=== PATIENT | female | born 1940 | race Caucasian/White ===

== ENCOUNTER 2018-03-04 08:56 | Day surgery (SDC) | payer MEDICARE, OTHER ==
[~2018-03-04] VITALS: Ht 165.1 cm; Wt 70.0 kg
[~2018-03-04 08:56] MED LIST: ASPI-496 PO; DARI15TA3 PO; LEVO100T5 PO; OMEP40CA6 PO
[2018-03-04 10:20] VITALS: BP 143/66
[2018-03-04] MEDS ORDERED: CALC0.254 PO (10:34)
[2018-03-04 10:51] LABS: BASOPHILS # (AUTO) 0.05 x10^3/uL (0-0.1); BASOPHILS % (AUTO) 1 % (0-1); EOSINOPHILS % (AUTO) 3 % (1-7); LYMPHOCYTES # (AUTO) 1.65 x10^3/uL (1-3.4); LYMPHOCYTES % (AUTO) 25 % (22-44); MD NO; MEAN CORPUSCULAR HEMOGLOBIN 31.5 pg (27.0-34.8); MEAN CORPUSCULAR HGB CONC 33.6 g/dL (32.4-35.8); MEAN CORPUSCULAR VOLUME 93.7 fL (80-100); MONOCYTES # (AUTO) 0.35 x10^3/uL (0.2-0.8); MONOCYTES % (AUTO) 5 % (2-9); NEUTROPHILS # (AUTO) 4.49 x10^3/uL (1.8-6.8); NEUTROPHILS % (AUTO) 67 % (42-75); PLATELET COUNT 213 x10^3/uL (130-400); RED BLOOD COUNT 4.25 x10^6/uL (3.82-5.3); RED CELL DISTRIBUTION WIDTH 13.3 % (9.6-15.2)
[2018-03-04 10:54] LABS: ANION GAP 8 mmol/L (5-15); CALCIUM 8.8 mg/dL (8.5-10.1); CHLORIDE 107 mmol/L (98-107); CREATININE 0.91 mg/dL (0.55-1.02)
[2018-03-04] MEDS ORDERED: FENTANYL PF 100 MCG/2ML ONE (11:45)
[2018-03-04] MEDS ORDERED: MIDAZOLAM 1 MG/ML, 5ML ONE (11:45)
[2018-03-04] MEDS ORDERED: LIDOCAINE-MPF 2%, 2ML ONE (11:46)
[2018-03-04] MEDS ORDERED: VERAPAMIL 2.5 MG/ML, 2ML ONE (11:46)
[2018-03-04] MEDS ORDERED: BIVALIRUDIN 250 MG ONE (11:46)
[2018-03-04] MEDS ORDERED: HEPARIN 1,000 UNITS/ML, 10ML ONE (11:46)
[2018-03-04] MEDS ORDERED: TICAGRELOR 90 MG TABLET ONE (11:46)
[2018-03-04] MEDS ORDERED: SODIUM CHLORIDE 0.9% 1,000 ML IV SCH (12:19)
== END 2018-03-04 14:20 | disposition home or self-care (01) ==
LOC: CACL 08:56
PROVIDERS: ATTEND Internal Medicine Cardiovascular Disease
DX: R07.9 Chest pain, unspecified (principal); K21.9 Gastro-esophageal reflux disease without esophagitis; E03.9 Hypothyroidism, unspecified; Z72.89 Other problems related to lifestyle; Z79.82 Long term (current) use of aspirin; Z88.8 Allergy status to other drugs, medicaments and biological substances
CPT/HCPCS: 36415; 80048; 85025; 93458; 99156; C1769; C1894; J1644; J2250; J3010; J3490; Q9967; J0583

== ENCOUNTER 2018-10-03 10:01 | Outpatient (CLI) | payer MEDICARE, OTHER ==
[~2018-10-03 10:01] MED LIST changes: +CALC0.254 PO
== END 2018-10-03 23:59 | disposition home or self-care (01) ==
LOC: RAD 10:01
PROVIDERS: ATTEND Nurse Practitioner Family
DX: R68.84 Jaw pain (principal)
CPT/HCPCS: 70100

== ENCOUNTER 2019-03-13 13:27 | Outpatient (CLI) | payer MEDICARE, OTHER | END 2019-03-13 23:59 | disposition home or self-care (01) | LOC: STAR 13:27 | PROVIDERS: ATTEND Orthopaedic Surgery | DX: Z01.818 Encounter for other preprocedural examination (principal); M18.11 Unilateral primary osteoarthritis of first carpometacarpal joint, right hand; M25.551 Pain in right hip; M17.0 Bilateral primary osteoarthritis of knee; Z79.82 Long term (current) use of aspirin; Z79.899 Other long term (current) drug therapy | CPT/HCPCS: 36415; 80053; 83036; 85025; 85610; 85730; 87081; 93005 ==

== ENCOUNTER 2019-03-17 10:29 | Inpatient (IN) | payer MEDICARE, OTHER ==
[~2019-03-17] VITALS: Ht 165.1 cm; Wt 72.0 kg
[2019-03-18 14:31] VITALS: BP 142/74
== END 2019-03-18 15:19 | disposition home or self-care (01) | DRG 470 ==
LOC: ORIP 10:29 → EDSTATUS 14:00 → 4NOR 15:49 → DCLOUNGE 03-18 15:00
PROVIDERS: ADMIT Orthopaedic Surgery; ATTEND Orthopaedic Surgery
PROC: 0SR906A Replacement of Right Hip Joint with Oxidized Zirconium on Polyethylene Synthetic Substitute, Uncemented, Open Approach (ICD-10-PCS; principal; 2019-03-17)
DX: M16.11 Unilateral primary osteoarthritis, right hip (principal); K21.9 Gastro-esophageal reflux disease without esophagitis; Z90.710 Acquired absence of both cervix and uterus; M81.0 Age-related osteoporosis without current pathological fracture; Z82.49 Family history of ischemic heart disease and other diseases of the circulatory system
CPT/HCPCS: 36415; 72170; 76000; 85014; 85018; C1713; G0378; J0171; J0690; J1100; J1170; J1885; J2405; J2704; J2710; J2795; J3010; J3370; J3480; C1776; J0330; J7120

== ENCOUNTER 2019-04-15 08:43 | Inpatient (IN) | payer MEDICARE, OTHER ==
[~2019-04-15] VITALS: Ht 165.1 cm; Wt 75.7 kg
[~2019-04-15 08:43] MED LIST changes: +IMIP10TA2 PO; +MELO7.5T31 PO; +MELO7.5T5 PO; +NAPR1TAB25 PO; +NAPR220C2 PO; +OXYC5CAP2 PO; +TRAM50TA2 PO
[2019-04-15] MEDS ORDERED: SODIUM CHLORIDE FLUSH 10ML SYR IVF ONE (09:30)
[2019-04-15] MEDS ORDERED: ONDANSETRON 2MG/ML, 2ML IVPush ONE (09:30)
[2019-04-15] MEDS ORDERED: ONDANSETRON 2MG/ML, 2ML ONE (09:46)
[2019-04-15] MEDS ORDERED: MORPHINE SULFATE 4 MG/ML, 1ML ONE ×2 (09:47→11:17)
[2019-04-15] MEDS: MORPHINE SULFATE 4 MG/ML, 1ML IVPush PRN ×2 (09:56→11:22)
--- NOTE | 2019-04-15 09:59 | NUR ---
PIV INITITATED, PT MEDICATED PER MAR, NO OTHER NEEDS AT THIS TIME
--- NOTE | 2019-04-15 10:46 | NUR ---
PT REPORTS SIG PAIN RELIEF, PAIN DOWN TO 3/10 FROM 02/15. ER PROVIDER IN TO UPDATE PT, PT TO GO TO CT
--- NOTE | 2019-04-15 11:40 | NUR ---
PT MEDICATED BY REMA TOLLIVER FOR SECOND DOSE OF MORPHINE, PT STATES SHE IS COMFORTABLE AT THIS TIME, PAIN 4/10
[2019-04-15 12:29] LABS: BASOPHILS # (AUTO) 0.02 x10^3/uL (0-0.1); BASOPHILS % (AUTO) 0 % (0-1); EOSINOPHILS # (AUTO) 0.03 x10^3/uL (0-0.4); EOSINOPHILS % (AUTO) 0 % (1-7); LYMPHOCYTES # (AUTO) 1.62 x10^3/uL (1-3.4); LYMPHOCYTES % (AUTO) 15 % (22-44); MD NO; MEAN CORPUSCULAR HEMOGLOBIN 31.4 pg (27.0-34.8); MEAN CORPUSCULAR HGB CONC 33.1 g/dL (32.4-35.8); MEAN CORPUSCULAR VOLUME 94.9 fL (80-100); MEAN PLATELET VOLUME 9.3 fL (7.4-10.4); MONOCYTES # (AUTO) 0.36 x10^3/uL (0.2-0.8); MONOCYTES % (AUTO) 3 % (2-9); NEUTROPHILS # (AUTO) 8.98 x10^3/uL (1.8-6.8); NEUTROPHILS % (AUTO) 82 % (42-75); PLATELET COUNT 225 x10^3/uL (130-400); RED BLOOD COUNT 3.51 x10^6/uL (3.82-5.3); RED CELL DISTRIBUTION WIDTH 14.3 % (9.6-15.2)
[2019-04-15] MEDS ORDERED: ONDANSETRON 2MG/ML, 2ML IVPush PRN (12:30)
[2019-04-15] MEDS ORDERED: ENALAPRILAT 1.25 MG/ML, 2ML IVPush PRN (12:30)
[2019-04-15] MEDS ORDERED: DOCUSATE 100 MG CAPSULE PO PRN (12:30)
[2019-04-15] MEDS ORDERED: ONDANSETRON ODT 4 MG PO PRN (12:30)
[2019-04-15] MEDS ORDERED: morphine SULFATE 10 MG/ML, 1ML IVPush PRN (12:30)
[2019-04-15] MEDS ORDERED: GUAIFENESIN/DM 200-20MG, 10ML UDC PO PRN (12:30)
[2019-04-15] MEDS ORDERED: ZOLPIDEM 5MG TABLET PO PRN (12:30)
[2019-04-15] MEDS ORDERED: ACETAMINOPHEN 325 MG TABLET PO PRN (12:30)
[2019-04-15] MEDS ORDERED: CYCLOBENZAPRINE 10 MG TABLET PO PRN (12:30)
[2019-04-15] MEDS ORDERED: LACTATED RINGERS 1,000 ML IV ONE (12:30)
--- NOTE | 2019-04-15 12:32 | NUR ---
BREAK RN:PT NEEDING TO USE RESTROOM AT THIS TIME DUE TO INJURY AND RECENT FALL THE OPTIONS OF BED STEEN OR PURE WICK CATHETER GIVEN. AT THIS TIME PT CHOOSES PURE WICK. PURE WICK IS PLACED AND PT EDUCATED ON USE.
[2019-04-15 12:35] LABS: INTERNATIONAL NORMALIZED RATIO 1.01 (0.93-1.1); PROTHROMBIN TIME 10.6 Seconds (9.6-11.5)
[2019-04-15 12:36] LABS: ALBUMIN 3.5 g/dL (3.4-5.0); ANION GAP 4 mmol/L (5-15); CALCIUM 8.5 mg/dL (8.5-10.1); CHLORIDE 110 mmol/L (98-107); CREATININE 0.92 mg/dL (0.55-1.02)
--- NOTE | 2019-04-15 13:35 | NUR ---
REPORT CALLED TO RECIEVING RN
[2019-04-15 13:57] VITALS: BP 164/80
[2019-04-15 19:59] VITALS: BP 169/69
[2019-04-15] MEDS: TEMAZEPAM 15 MG CAPSULE PO PRN (21:41)
[2019-04-16 00:53] VITALS: BP 126/71
[2019-04-16 05:37] LABS: BASOPHILS # (AUTO) 0.02 x10^3/uL (0-0.1); BASOPHILS % (AUTO) 0 % (0-1); EOSINOPHILS # (AUTO) 0.12 x10^3/uL (0-0.4); EOSINOPHILS % (AUTO) 2 % (1-7); LYMPHOCYTES % (AUTO) 24 % (22-44); MD NO; MEAN CORPUSCULAR HEMOGLOBIN 31.4 pg (27.0-34.8); MEAN CORPUSCULAR HGB CONC 32.8 g/dL (32.4-35.8); MEAN CORPUSCULAR VOLUME 95.7 fL (80-100); MEAN PLATELET VOLUME 9.8 fL (7.4-10.4); MONOCYTES # (AUTO) 0.43 x10^3/uL (0.2-0.8); MONOCYTES % (AUTO) 6 % (2-9); NEUTROPHILS # (AUTO) 5.13 x10^3/uL (1.8-6.8); NEUTROPHILS % (AUTO) 68 % (42-75); PLATELET COUNT 189 x10^3/uL (130-400); RED BLOOD COUNT 3.39 x10^6/uL (3.82-5.3); RED CELL DISTRIBUTION WIDTH 14.4 % (9.6-15.2)
[2019-04-16 05:52] LABS: ANION GAP 5 mmol/L (5-15); CALCIUM 8.2 mg/dL (8.5-10.1); CHLORIDE 109 mmol/L (98-107)
[2019-04-16 05:54] LABS: CREATININE 0.86 mg/dL (0.55-1.02)
[2019-04-16] MEDS: LEVOTHYROXINE 100 MCG TABLET PO SCH (06:00)
[2019-04-16] MEDS ORDERED: MORPHINE SULFATE 4 MG/ML, 1ML IVPush PRN (07:30)
[2019-04-16] MEDS ORDERED: MEPERIDINE/PF 25MG/ML,1ML IVPush PRN (07:30)
[2019-04-16] MEDS ORDERED: PROMETHAZINE 25 MG/ML, 1ML IV PRN (07:30)
[2019-04-16] MEDS ORDERED: LABETALOL 5MG/ML, 20ML IV PRN (07:30)
[2019-04-16] MEDS ORDERED: hydrALAzine 20 MG/ML, 1ML IV PRN (07:30)
[2019-04-16] MEDS ORDERED: OXYcodone 5 MG/5 ML ORAL.SOL UDC PO PRN (07:30)
[2019-04-16] MEDS ORDERED: ACETAMINOPHEN 325 MG TABLET PO PRN (07:30)
[2019-04-16] MEDS ORDERED: GLYCOPYRROLATE 0.2MG/1ML, 5ML ONE (07:37)
[2019-04-16] MEDS ORDERED: ROCURONIUM 10 MG/ML,10ML ONE (07:37)
[2019-04-16] MEDS ORDERED: PROPOFOL 10 MG/ML, 20ML ONE (07:37)
[2019-04-16] MEDS ORDERED: CEFAZOLIN 1,000 MG ONE (07:37)
[2019-04-16] MEDS ORDERED: DEXAMETHASONE 4 MG/ML, 1ML ONE (07:37)
[2019-04-16] MEDS ORDERED: NEOSTIGMINE 1 MG/ML, 10ML ONE (07:37)
[2019-04-16] MEDS ORDERED: ONDANSETRON 2MG/ML, 2ML ONE (07:37)
[2019-04-16] MEDS: ACETAMINOPHEN 325 MG TABLET PO SCH ×3 (09:00→21:10)
[2019-04-16] MEDS: ENOXAPARIN 40 MG/0.4 ML SQ SCH (09:00)
[2019-04-16] MEDS ORDERED: ASPIRIN 81 MG TABLET EC PO SCH (09:00)
[2019-04-16] MEDS: IMIPRAMINE 10 MG TABLET PO SCH (09:00)
[2019-04-16] MEDS: CALCIUM/VITAMIN D3 250-125 TABLET PO SCH ×2 (09:00→21:10)
[2019-04-16] MEDS: FENTANYL PF 100 MCG/2ML IV PRN ×2 (09:40→10:05)
[2019-04-16] MEDS: HYDROmorphone 2 MG/ML, 1ML IVPush PRN ×3 (10:15→10:25)
[2019-04-16] MEDS: SODIUM CHLORIDE 0.9% 1,000 ML IV SCH ×2 (11:36→22:57)
[2019-04-16 14:53] VITALS: BP 137/63
[2019-04-16] MEDS: CEFAZOLIN PMX 2GM/50ML 50 ML IVPB SCH (16:27)
[2019-04-16 19:04] VITALS: BP 156/81
[2019-04-16] MEDS: ASPIRIN 81 MG TABLET CHEW PO SCH (21:10)
[2019-04-16] MEDS: TEMAZEPAM 15 MG CAPSULE PO PRN (22:57)
[2019-04-17 00:06] VITALS: BP 127/67
[2019-04-17] MEDS: CEFAZOLIN PMX 2GM/50ML 50 ML IVPB SCH (00:16)
[2019-04-17] MEDS: ACETAMINOPHEN 325 MG TABLET PO SCH ×4 (03:32→23:00)
[2019-04-17 03:54] VITALS: BP 148/71
[2019-04-17] MEDS: ALENDRONATE 10 MG TABLET PO SCH (05:55)
[2019-04-17] MEDS: LEVOTHYROXINE 100 MCG TABLET PO SCH (05:55)
[2019-04-17 07:57] LABS: BASOPHILS # (AUTO) 0.02 x10^3/uL (0-0.1); BASOPHILS % (AUTO) 0 % (0-1); EOSINOPHILS # (AUTO) 0.07 x10^3/uL (0-0.4); EOSINOPHILS % (AUTO) 1 % (1-7); LYMPHOCYTES # (AUTO) 1.14 x10^3/uL (1-3.4); LYMPHOCYTES % (AUTO) 15 % (22-44); MD NO; MEAN CORPUSCULAR HEMOGLOBIN 31.1 pg (27.0-34.8); MEAN CORPUSCULAR HGB CONC 32.5 g/dL (32.4-35.8); MEAN CORPUSCULAR VOLUME 95.6 fL (80-100); MEAN PLATELET VOLUME 9.4 fL (7.4-10.4); MONOCYTES # (AUTO) 0.45 x10^3/uL (0.2-0.8); MONOCYTES % (AUTO) 6 % (2-9); NEUTROPHILS # (AUTO) 5.77 x10^3/uL (1.8-6.8); NEUTROPHILS % (AUTO) 78 % (42-75); PLATELET COUNT 181 x10^3/uL (130-400); RED BLOOD COUNT 3.34 x10^6/uL (3.82-5.3); RED CELL DISTRIBUTION WIDTH 13.9 % (9.6-15.2)
[2019-04-17 08:09] LABS: CHLORIDE 107 mmol/L (98-107)
[2019-04-17 08:12] VITALS: BP 129/68
[2019-04-17 08:14] LABS: ANION GAP 3 mmol/L (5-15); CALCIUM 8.1 mg/dL (8.5-10.1); CREATININE 0.91 mg/dL (0.55-1.02)
[2019-04-17] MEDS: IMIPRAMINE 10 MG TABLET PO SCH (09:00)
[2019-04-17] MEDS: CALCIUM/VITAMIN D3 250-125 TABLET PO SCH ×2 (09:25→21:22)
[2019-04-17] MEDS: ASPIRIN 81 MG TABLET CHEW PO SCH ×2 (09:25→21:22)
[2019-04-17] MEDS: ENOXAPARIN 40 MG/0.4 ML SQ SCH (09:25)
[2019-04-17] MEDS ORDERED: morphine SULFATE 10 MG/ML, 1ML IVPush PRN (09:30)
[2019-04-17 13:27] VITALS: BP 122/66
[2019-04-17 18:43] VITALS: BP 116/70
[2019-04-17] MEDS: SODIUM CHLORIDE 0.9% 1,000 ML IV SCH (21:20)
[2019-04-17] MEDS: SENNA/DOCUSATE TABLET PO SCH (21:21)
[2019-04-18 01:12] VITALS: BP 128/73
[2019-04-18] MEDS: ACETAMINOPHEN 325 MG TABLET PO SCH ×4 (01:30→20:37)
[2019-04-18] MEDS: LEVOTHYROXINE 100 MCG TABLET PO SCH (05:50)
[2019-04-18] MEDS: ALENDRONATE 10 MG TABLET PO SCH (05:50)
[2019-04-18] MEDS: SODIUM CHLORIDE 0.9% 1,000 ML IV SCH (07:30)
[2019-04-18 07:55] VITALS: BP 119/67
[2019-04-18] MEDS: CALCIUM/VITAMIN D3 250-125 TABLET PO SCH ×2 (08:40→20:37)
[2019-04-18] MEDS: ENOXAPARIN 40 MG/0.4 ML SQ SCH (08:41)
[2019-04-18] MEDS: IMIPRAMINE 10 MG TABLET PO SCH (08:41)
[2019-04-18] MEDS: ASPIRIN 81 MG TABLET CHEW PO SCH ×2 (08:41→20:37)
[2019-04-18] MEDS ORDERED: BISACODYL 10 MG SUPP PR ONE (09:00)
[2019-04-18] MEDS ORDERED: MAGNESIUM CITRATE 300ML ORAL SOL PO ONE (09:00)
[2019-04-18 13:03] VITALS: BP 134/74
[2019-04-18 19:36] VITALS: BP 154/69
[2019-04-18] MEDS: SENNA/DOCUSATE TABLET PO SCH (20:37)
[2019-04-19 02:00] VITALS: BP 137/69
[2019-04-19] MEDS: ACETAMINOPHEN 325 MG TABLET PO SCH ×3 (02:53→15:22)
[2019-04-19] MEDS: LEVOTHYROXINE 100 MCG TABLET PO SCH (05:57)
[2019-04-19] MEDS: ALENDRONATE 10 MG TABLET PO SCH (05:57)
[2019-04-19] MEDS: SODIUM CHLORIDE 0.9% 1,000 ML IV SCH (06:13)
[2019-04-19 07:30] VITALS: BP 139/75
[2019-04-19] MEDS: IMIPRAMINE 10 MG TABLET PO SCH (08:47)
[2019-04-19] MEDS: ENOXAPARIN 40 MG/0.4 ML SQ SCH (08:47)
[2019-04-19] MEDS: CALCIUM/VITAMIN D3 250-125 TABLET PO SCH (08:48)
[2019-04-19] MEDS: ASPIRIN 81 MG TABLET CHEW PO SCH (08:48)
[2019-04-19] MEDS ORDERED: ASPI-496 PO (11:09)
[2019-04-19 13:50] VITALS: BP 133/68
[2019-05-03] MEDS ORDERED: CHOL400T2 PO (12:18)
[2019-05-03] MEDS ORDERED: METH500T7 PO (12:18)
[2019-05-03] MEDS ORDERED: LIDO700A20 TD (12:18)
== END 2019-04-19 17:35 | disposition home health service (06) | DRG 467 ==
LOC: ED 10:42 → EDIP 12:14 → 4NE 13:37
PROVIDERS: ADMIT Internal Medicine; ATTEND Internal Medicine
PROC: 0SP90JZ Removal of Synthetic Substitute from Right Hip Joint, Open Approach (ICD-10-PCS; 2019-04-16)
PROC: 0SR903A Replacement of Right Hip Joint with Ceramic Synthetic Substitute, Uncemented, Open Approach (ICD-10-PCS; principal; 2019-04-16 07:30)
DX: S72.124A Nondisplaced fracture of lesser trochanter of right femur, initial encounter for closed fracture (principal); M97.01XA Periprosthetic fracture around internal prosthetic right hip joint, initial encounter; E03.9 Hypothyroidism, unspecified; G47.00 Insomnia, unspecified; G89.29 Other chronic pain; I12.9 Hypertensive chronic kidney disease with stage 1 through stage 4 chronic kidney disease, or unspecified chronic kidney disease; K21.9 Gastro-esophageal reflux disease without esophagitis; K59.00 Constipation, unspecified; M19.90 Unspecified osteoarthritis, unspecified site; M43.16 Spondylolisthesis, lumbar region; M48.061 Spinal stenosis, lumbar region without neurogenic claudication; N18.9 Chronic kidney disease, unspecified; W01.0XXA Fall on same level from slipping, tripping and stumbling without subsequent striking against object, initial encounter; Y93.01 Activity, walking, marching and hiking; M54.9 Dorsalgia, unspecified; Y93.89 Activity, other specified; Y92.89 Other specified places as the place of occurrence of the external cause; Y99.8 Other external cause status
CPT/HCPCS: 36415; 71045; 72131; 72170; 80048; 82040; 83735; 85025; 85610; 86850; 86900; 96374; 96375; 96376; C1713; G0378; J0171; J0690; J1100; J1170; J1650; J1885; J2405; J2704; J2710; J2795; J3010; J3370; C1776; J2270; J2370; J7030; J7120